=== PATIENT | male | born 1965 | race Caucasian/White ===

== ENCOUNTER 2018-03-16 15:58 | Emergency (ER) | payer MEDICAID, OTHER ==
[2018-03-16 16:07] VITALS: BP 139/90
[2018-03-16] MEDS ORDERED: BUPIVACAINE 0.5% PF 10 ML VIAL SUBQ STA (16:44)
--- NOTE | 2018-03-16 17:05 | ED Physician Documentation ---
PD HPI UPPER EXT INJURY - Stated complaint Stated Complaint: LT FINGER VS CHAIN - Chief complaint Chief Complaint: Laceration - History obtained from History obtained from: Patient - History of Present Illness Location: Left, Finger (ring) Type of injury: Laceration Where injury occurred: Home Timing - onset: Today Timing - duration: Minutes Timing - details: Abrupt onset, Still present Improved by: Rest, Ice, Immobilization Worsened by: Moving, Palpating Associated symptoms: Swelling, Discolored. No: Weakness, Numbness, Tingling Contributing factors: No: Anticoagulated Similar symptoms before: Has not had sx before Recently seen: Not recently seen - Additonal information Additional information: 52-year-old male was working on his motorcycle when he got a his left ring finger caught in between the chain in the chain ring. He is avulsed the nail partially and lacerated the finger. He is coming to the emergency department now for evaluation. Review of Systems Constitutional: denies: Fever Eyes: denies: Decreased vision Ears: denies: Ear pain Nose: denies: Rhinorrhea / runny nose, Congestion Throat: denies: Sore throat Cardiac: denies: Chest pain / pressure Respiratory: denies: Cough GI: denies: Vomiting : denies: Dysuria Skin: reports: Laceration (s). denies: Rash Musculoskeletal: reports: Extremity pain. denies: Neck pain, Back pain PD PAST MEDICAL HISTORY - Past Medical History Cardiovascular: None - Present Medications Home Medications: Ambulatory Orders Medication Instructions Recorded Confirmed Amox/Clav 875/125 [Augmentin] 1 each PO Q12H #10 tablet 03/16/18 - Allergies Allergies/Adverse Reactions: Allergies Allergy/AdvReac Type Severity Reaction Status Date / Time No Known Drug Allergies Allergy Verified 03/16/18 16:07 - Living Situation Living Arrangement: reports: At home PD ED PE NORMAL - Vitals Vital signs reviewed: Yes (hypertensive ) - General General: No acute distress, Well developed/nourished - HEENT HEENT: Atraumatic, PERRL - Respiratory Respiratory: No respiratory distress - Derm Derm: Normal color, Warm and dry, No rash - Extremities Extremities: Other (There is a laceration through the nailbed and the nail is fully avulsed proximally and adhered distally. There is laceration through the nail bed with exposed bone. 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, No motor deficit, No sensory deficit, Normal speech Eye Opening: Spontaneous Motor: Obeys Commands Verbal: Oriented GCS Score: 15 - Psych Psych: Normal mood, Normal affect Results - Vitals Vitals: Vital Signs - 24 hr 03/16/18 16:05 Temperature 37 C Heart Rate 93 Respiratory 16 Rate Blood Pressure 139/90 H O2 Saturation 95 Oxygen O2 Source Room air - Rads (name of study) left hand Radiology: Prelim report reviewed (Impression: Mildly comminuted and mildly displaced fourth digit distal phalangeal tuft fracture with adjacent laceration consistent with an open fracture.), EMP read indepedently, See rad report Procedures - Laceration (location) left ring finger Length in cm: 2.5 Wound type: Linear, Clean, Other (nail avulsed) Neurovascular status: Sensory intact, Motor intact, Vascular intact Tendon involvement: Tendon intact Anesthesia: Marcaine 0.5%, OTH (digital block) Wound Preparation: Hibiclens, Irrigated copiously NS, Wound explored, To the bas e Skin layer closure: Nylon, Interrupted, Size #-0 - enter number (5-0), Sutures - enter # (6), Other (to the nail bed 5-0 vicryl X3) Other: Patient tolerated well, No complications, Neurovascular intact, Dressing applied, Tetanus booster given Complexity: Intermediate PD MEDICAL DECISION MAKING - ED course Complexity details: reviewed results, re-evaluated patient, considered differential, d/w patient ED course: 52-year-old male has caught his finger between a chain ring in a chain and he has a comminuted distal tuft fracture with nail avulsion. The nail is removed from the finger and the wound is cleansed and sutured and the patient is administered Augmentin 875. We will place him on a short course for prophylaxis of an open fracture. Departure - Departure Disposition: 01 Home, Self Care Clinical Impression: Open fracture of tuft of distal phalanx of finger Condition: Stable Instructions: ED Fx Finger Open Follow-Up: [facility] [Provider Group] Prescriptions: Amox/Clav 875/125 [Augmentin] 1 each PO Q12H #10 tablet Comments: The black sutures on the skin will need to be removed in about 7-10 days. The sutures to the nail bed itself are dissolvable.
--- NOTE | 2018-03-16 17:11 | XRAY Report ---
Reason: ring finger nail injury Procedure Date: 03/16/2018 Accession Number: [id number] / [id number] Procedure: XR - Hand 3 View LT CPT Code: FULL RESULT: EXAM: LEFT HAND RADIOGRAPHY EXAM DATE: 03/16/2018 04:58 PM. CLINICAL HISTORY: Ring finger nail injury. COMPARISON: 02/12/2006. TECHNIQUE: 3 views. FINDINGS: Bones: Comminuted, mildly displaced fourth digit distal phalangeal tuft fracture with adjacent medial and dorsal soft tissue deformity and lucency consistent with laceration and an open fracture. Joints: Normal. No subluxations. Soft Tissues: Distal fourth finger lateral and dorsal soft tissue deformity and soft tissue gas consistent with laceration. No definite radiopaque foreign body. IMPRESSION: Mildly comminuted and mildly displaced fourth digit distal phalangeal tuft fracture with adjacent laceration consistent with an open fracture. [facility]
[2018-03-16] MEDS ORDERED: HYDROcod/ACET 5/325 Prepack 4 PO STA (18:03)
[2018-03-16] MEDS ORDERED: AMOX/CLAV 875 MG/125 MG TABLET PO STA (18:03)
[2018-03-16] MEDS ORDERED: TETANUS/DIPHTHERIA/PERTUSSIS 0.5 ML SYRINGE IM ONE (18:13)
== END 2018-03-16 18:34 | disposition home or self-care (01) ==
LOC: ED 15:58
DX: S62.635A Displaced fracture of distal phalanx of left ring finger, initial encounter for closed fracture (principal); W23.0XXA Caught, crushed, jammed, or pinched between moving objects, initial encounter; Y92.009 Unspecified place in unspecified non-institutional (private) residence as the place of occurrence of the external cause; Z23 Encounter for immunization
CPT/HCPCS: 12041; 73130; 90471; 90715; 99283; A9270